=== PATIENT | male | born 1980 | race Caucasian/White ===

== ENCOUNTER → 2021-02-06 | Outpatient (CLI) | payer OTHER ==
[~2021-02-06] MED LIST: TAPE50TA10 PO
== END ==
LOC: LAB 12:09
PROVIDERS: ATTEND Orthopaedic Surgery
DX: Z01.812 Encounter for preprocedural laboratory examination (principal); Z20.822 Contact with and (suspected) exposure to COVID-19
CPT/HCPCS: U0003; U0005

== ENCOUNTER 2021-02-08 07:00 | Day surgery (SDC) | payer OTHER ==
[~2021-02-08] VITALS: Ht 180.3 cm; Wt 75.0 kg
[~2021-02-08 07:00] MED LIST changes: +HYDROmorphone 2 MG/ML VIAL IVP PRN; +IV RINGERS,LACTATED 1000ML 1,000 ML IV SCH; +MORPHINE SULFATE 2 MG/ML VIAL. IVP PRN; +PROCHLORPERAZINE 10 MG/2 ML VIAL. IVP PRN; -TAPE50TA10 PO; +fentaNYL PF VIAL 100 MCG/2 ML VIAL IVP PRN
[2021-02-08] MEDS ORDERED: EPINEPHrine VIAL 30 MG/30 ML VIAL ONE (07:14)
[2021-02-08] MEDS ORDERED: ceFAZolin SODIUM IV Push 1 GM VIAL. IVP PRN (07:15)
[2021-02-08] MEDS ORDERED: ROPIVacaine 0.5% PF 20 ML VIAL. ONE (07:16)
[2021-02-08] MEDS ORDERED: MIDAZOLAM HCL/PF 2 MG/2 ML VIAL. ONE (07:17)
[2021-02-08] MEDS ORDERED: diphenhydrAMINE 50 MG/ML VIAL ONE (07:18)
[2021-02-08] MEDS ORDERED: PROPOFOL 10 MG/ML (20ML) VIAL. IV ONE (07:52)
[2021-02-08] MEDS ORDERED: DEXAMETHASONE SOD PHOS 4 MG/ML VIAL ONE (07:52)
[2021-02-08] MEDS ORDERED: LIDOCAINE 2% PF 5 ML VIAL. ONE (07:52)
[2021-02-08] MEDS ORDERED: ROCURONIUM 50 MG/5 ML VIAL. ONE (07:53)
[2021-02-08] MEDS ORDERED: ONDANSETRON PF 4 MG/2 ML VIAL. ONE (07:53)
[2021-02-08] MEDS ORDERED: fentaNYL PF VIAL 100 MCG/2 ML VIAL ONE ×2 (07:59→09:45)
[2021-02-08 08:24] LABS: BARBITURATES NEG (NEG); BENZODIAZEPINES NEG (NEG); CANNABINOIDS POS (NEG); COCAINE NEG (NEG); METHADONE NEG (NEG); OPIATES NEG (NEG); PHENCYCLIDINE NEG (NEG)
[2021-02-08 08:25] LABS: AMPHETAMINE/METHAMPHETAMINE NEG (NEG)
[2021-02-08] MEDS ORDERED: GLYCOPYRROLATE 1 MG/5 ML VIAL. ONE (09:07)
[2021-02-08] MEDS ORDERED: NEOSTIGMINE METHYLSULFATE 5 MG/5 ML SYRINGE. ONE (09:08)
[2021-02-08] MEDS ORDERED: TAPE50TA10 PO (09:57)
--- NOTE | 2021-02-08 09:59 | DISCH ---
DISCHARGE INSTRUCTIONS Condition on Discharge Condition on Discharge: Stable Activity After Discharge Activity Instructions for Disc: Activity as tolerated Exercise Instruction after Dis: Exercise per therapy, Progress as tolerated Weight Bearing Status after Di: As tolerated Diet after Discharge Diet after Discharge: Regular Wound Incision Care Wound/Incision Care: Change dressing (Remove dressing in 2 days may then shower and replace with Band-Aids, report any redness drainage fever chills or other problems) Community/Resources/Services Services at Discharge: PT EVALUATE & TREAT (Immediate active and passive range of motion progressing to strengthening as tolerated, symptomatic restrictions only) Contacting the DRTal[facility] after DC Call your doctor for: Concerns you may have Follow-Up Follow up with: [facility], call [phone] for appointment in 2 weeks MARIO HACKETT MD Feb 08, 2021 09:59
[2021-02-08 10:10] VITALS: BP 115/71
--- NOTE | 2021-02-08 15:51 | PDOC4 ---
Operative Note Operative Note Date of surgery: 02/08/2041 Preoperative diagnosis: Rotator cuff and superior labral tear Postoperative diagnosis: Same with type I SLAP tear and partial-thickness undersurface rotator cuff tear Operative procedure: Right shoulder arthroscopy debridement of a type I SLAP tear and partial-thickness rotator cuff tear Surgeon: Jackie Assist: Ever machuca Anesthesia: General plus scalene block Estimated blood loss: 5 cc Complications: None Operative indications: Please see my preoperative clinic note for detailed operative indications and note that we had reviewed risk benefits postoperative course and possible complications of nonhealing infection nerve or blood vessel damage continued pain and medical or other anesthetic complications among others and informed consent was obtained to proceed with surgical evaluation and treatment Operative text: Patient was identified procedure verified patient placed in the supine position on the operating table and after adequate amounts of general anesthesia were administered placed in the decubitus position right side up all bony prominences were well-padded. Right shoulder was examined under anesthesia found to have full range of motion with no instability in the right shoulder was prepped and draped in standard sterile fashion and the right arm placed in arthroscopic arm hull with a total of 10 pounds of traction. After timeout was performed patient procedure identified and verified a standard posterior portal was established an anterior portal established using spinal needle localization and the shoulder joint was systematically examined. A type I SLAP tear was noted and was debrided back to stable tissue with the arthroscopic shaver and bipolar electrocautery. Biceps anchor was not compromised. Rotator cuff was noted to have a partial-thickness undersurface supraspinatus tear which was trimmed back to stable tissue. Subscapularis insertion capsuloligamentous structures and bare area of the humerus were all noted to be intact and glenohumeral cartilage well preserved. Subacromial space was then entered and bursa was cleared to allow adequate visualization and rotator cuff was noted to be scuffed with partial tear which was again debrided back to stable tissue but not in need of a rotator cuff repair. Joint was drained of arthroscopic fluid portals closed with nylon suture sterile absorbent dressings were placed patient was placed in a sling and patient was returned to recovery room stable condition having tolerated procedure well. Ever machuca was present for the procedure and assisted patient positioning prepping draping assistance with equipment closure and dressings MAIRO HACKETT MD Feb 08, 2021 15:51
== END 2021-02-08 11:00 | disposition home or self-care (01) ==
LOC: SURG 07:00 → EDUNIT# 13:00
PROVIDERS: ATTEND Orthopaedic Surgery
DX: S43.431A Superior glenoid labrum lesion of right shoulder, initial encounter (principal); M75.101 Unspecified rotator cuff tear or rupture of right shoulder, not specified as traumatic; J45.909 Unspecified asthma, uncomplicated; M19.90 Unspecified osteoarthritis, unspecified site; F41.9 Anxiety disorder, unspecified; Z79.899 Other long term (current) drug therapy; Z98.890 Other specified postprocedural states; X58.XXXA Exposure to other specified factors, initial encounter; Y93.89 Activity, other specified; Y92.89 Other specified places as the place of occurrence of the external cause; Y99.8 Other external cause status
CPT/HCPCS: 29807; 64415; 80307; A4930; J0171; J0690; J1100; J1200; J2250; J2405; J2704; J2710; J2795; J3010; J3490; A4452